=== PATIENT | male | born 1980 | race Caucasian/White ===

== ENCOUNTER 2016-09-03 19:01 | Emergency (ER) | payer OTHER | END 2016-09-03 20:39 | disposition home or self-care (01) | LOC: ER 19:01 | DX: T26.12XA Burn of cornea and conjunctival sac, left eye, initial encounter (principal); T26.11XA Burn of cornea and conjunctival sac, right eye, initial encounter; W89.0XXA Exposure to welding light (arc), initial encounter; X08.8XXA Exposure to other specified smoke, fire and flames, initial encounter; F17.210 Nicotine dependence, cigarettes, uncomplicated | CPT/HCPCS: 96372; 99070; 99282-25 ==